=== PATIENT | female | born 1995 | race Caucasian/White ===

== ENCOUNTER 2017-10-03 12:43 | Emergency (ER) | payer SELFPAY ==
[~2017-10-03] VITALS: Ht 157.5 cm; Wt 81.3 kg
[~2017-10-03 12:43] MED LIST: BACTDS PO; IBUP-1542 PO; TRAM50TA2 PO
[2017-10-03 12:46] VITALS: Ht 157.5 cm; Wt 81.3 kg
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
== END 2017-10-03 13:48 | disposition home or self-care (01) ==
LOC: FTE 12:43
DX: S13.4XXA Sprain of ligaments of cervical spine, initial encounter (principal); V89.2XXA Person injured in unspecified motor-vehicle accident, traffic, initial encounter
CPT/HCPCS: 99282